=== PATIENT | male | born 1965 | race Asian ===

== ENCOUNTER 2017-07-07 21:55 | Emergency (ER) | payer OTHER ==
[~2017-07-07] VITALS: Ht 175.3 cm; Wt 113.4 kg
[2017-07-07] MEDS ORDERED: HYZAAR1 TA1 PO (22:18)
[2017-07-07] MEDS ORDERED: CELEXA10 MG PO (22:19)
[2017-07-07] MEDS ORDERED: FENOFIBRATE40 MG PO (22:19)
[2017-07-07] MEDS ORDERED: GABA300C2 PO (22:19)
[2017-07-07] MEDS ORDERED: VICTOZA18 MG/3 ML SC (22:20)
[2017-07-08 00:38] VITALS: BP 132/78; TEMP 98.3
== END 2017-07-08 00:39 | disposition home or self-care (01) ==
LOC: ED 21:55
DX: S39.012A Strain of muscle, fascia and tendon of lower back, initial encounter (principal); V43.52XA Car driver injured in collision with other type car in traffic accident, initial encounter
CPT/HCPCS: 99283

== ENCOUNTER 2018-10-18 08:13 | Outpatient (CLI) | payer BC ==
[~2018-10-18 08:13] MED LIST: CELEXA10 MG PO; FENOFIBRATE40 MG PO; GABA300C2 PO; HYZAAR1 TA1 PO; VICTOZA18 MG/3 ML SC
[2018-10-18 08:42] LABS: PLATELET COUNT 267 K/uL (142-355)
== END 2018-10-18 19:30 | disposition home or self-care (01) ==
LOC: LABW 08:13
PROVIDERS: Nurse Practitioner Family
DX: Z00.00 Encounter for general adult medical examination without abnormal findings (principal); I10 Essential (primary) hypertension; E11.65 Type 2 diabetes mellitus with hyperglycemia; R53.82 Chronic fatigue, unspecified; Z79.899 Other long term (current) drug therapy
CPT/HCPCS: 36415; 80053; 80061; 83036; 84154; 84439; 84443; 85027

== ENCOUNTER 2018-10-23 09:29 | Outpatient (CLI) | payer BC | END 2018-10-23 20:22 | disposition home or self-care (01) | LOC: US 09:29 | DX: R10.9 Unspecified abdominal pain (principal) ==

== ENCOUNTER 2018-10-23 18:51 | Outpatient (CLI) | payer BC | END 2018-10-23 20:43 | disposition home or self-care (01) | LOC: RAD 18:51 | DX: M54.10 Radiculopathy, site unspecified (principal) ==

== ENCOUNTER 2019-09-04 11:39 | Outpatient (CLI) | payer BC | END 2019-09-04 19:30 | disposition home or self-care (01) | LOC: RAD 11:39 | DX: S91.302A Unspecified open wound, left foot, initial encounter (principal); I10 Essential (primary) hypertension; E11.65 Type 2 diabetes mellitus with hyperglycemia ==

== ENCOUNTER 2020-03-08 09:38 | Outpatient (CLI) | payer BC, OTHER | END 2020-03-08 22:31 | disposition home or self-care (01) | LOC: LAB 09:38 | DX: E11.65 Type 2 diabetes mellitus with hyperglycemia (principal); I10 Essential (primary) hypertension; R53.83 Other fatigue; R35.1 Nocturia; Z20.828 Contact with and (suspected) exposure to other viral communicable diseases | CPT/HCPCS: 87635; G2023; U00003 ==

== ENCOUNTER 2020-06-17 07:38 | Outpatient (CLI) | payer BC ==
[2020-06-17 09:09] LABS: POTASSIUM 4.2 mmol/L (3.6-5.2)
== END 2020-06-17 22:20 | disposition home or self-care (01) ==
LOC: LABW 07:38
PROVIDERS: Nurse Practitioner
DX: D64.9 Anemia, unspecified (principal); R53.83 Other fatigue
CPT/HCPCS: 36415; 80053; 82607; 82728; 82746; 82747; 83550; 84439; 84443

== ENCOUNTER 2020-11-30 09:54 | Outpatient (CLI) | payer BC | END 2020-11-30 22:41 | disposition home or self-care (01) | LOC: RAD 09:54 | PROVIDERS: ATTEND Nurse Practitioner Family | DX: I10 Essential (primary) hypertension (principal); E11.9 Type 2 diabetes mellitus without complications; E78.5 Hyperlipidemia, unspecified; E66.9 Obesity, unspecified; K21.9 Gastro-esophageal reflux disease without esophagitis; R53.83 Other fatigue | CPT/HCPCS: 93005 ==

== ENCOUNTER 2020-12-22 08:07 | Outpatient (CLI) | payer BC | END 2020-12-22 19:32 | disposition home or self-care (01) | LOC: RAD 08:07 | PROVIDERS: ATTEND Nurse Practitioner Family | DX: K21.9 Gastro-esophageal reflux disease without esophagitis (principal); R10.9 Unspecified abdominal pain ==

== ENCOUNTER 2022-05-12 20:44 | Emergency (ER) | payer BC ==
[~2022-05-12] VITALS: Ht 180.3 cm; Wt 111.1 kg
[2022-05-12 21:01] VITALS: BP 122/75; TEMP 98.2
== END 2022-05-13 00:30 | disposition home or self-care (01) ==
LOC: ED 20:44
PROC: 0HQFXZZ Repair Right Hand Skin, External Approach (ICD-10-PCS; principal; 2022-05-12)
PROC: 2W3JX1Z Immobilization of Right Finger using Splint (ICD-10-PCS; 2022-05-12)
DX: S61.210A Laceration without foreign body of right index finger without damage to nail, initial encounter (principal); W45.8XXA Other foreign body or object entering through skin, initial encounter; Y92.098 Other place in other non-institutional residence as the place of occurrence of the external cause
CPT/HCPCS: 90471; 90715; 99283

== ENCOUNTER 2022-09-01 12:10 | Outpatient (CLI) | payer BC ==
[2022-09-01 12:53] LABS: PLATELET COUNT 249 K/uL (142-355)
[2022-09-01 13:12] LABS: POTASSIUM 4.5 mmol/L (3.6-5.2)
== END 2022-09-01 23:59 | disposition home or self-care (01) ==
LOC: LABW 12:10
PROVIDERS: ATTEND Internal Medicine
DX: E11.22 Type 2 diabetes mellitus with diabetic chronic kidney disease (principal); N18.4 Chronic kidney disease, stage 4 (severe); D64.89 Other specified anemias; R53.83 Other fatigue
CPT/HCPCS: 36415; 80053; 81002; 82043; 82330; 82550; 82607; 82728; 82746; 83036; 83540; 83550; 83735; 83970; 84100; 84156; 84439; 84443; 84550; 85027

== ENCOUNTER 2022-10-27 12:51 | Outpatient (CLI) | payer BC ==
[2022-10-27 13:33] LABS: PLATELET COUNT 222 K/uL (142-355)
[2022-10-27 14:02] LABS: POTASSIUM 4.3 mmol/L (3.6-5.2)
== END 2022-10-27 19:01 | disposition home or self-care (01) ==
LOC: LAB 12:51
PROVIDERS: ATTEND Internal Medicine
DX: E11.22 Type 2 diabetes mellitus with diabetic chronic kidney disease (principal); N18.4 Chronic kidney disease, stage 4 (severe); D64.9 Anemia, unspecified; R53.83 Other fatigue
CPT/HCPCS: 36415; 80053; 81002; 82043; 82330; 82550; 82570; 82607; 82728; 82746; 83036; 83540; 83550; 83735; 83970; 84100; 84156; 84439; 84443; 84550; 85027

== ENCOUNTER 2023-04-04 14:12 | Outpatient (CLI) | payer BC | END 2023-04-04 21:54 | disposition home or self-care (01) | LOC: CT 14:12 | PROVIDERS: ATTEND Nurse Practitioner Family | DX: R42 Dizziness and giddiness (principal) ==